=== PATIENT | female | born 1955 ===

== ENCOUNTER 2018-02-15 10:33 | Emergency (ER) | payer BC ==
--- NOTE | 2018-02-15 11:08 | C.PDOC ---
History Of Present Illness 62-year-old female with PMHx of gastritis and vertigo presents to the ED with complaints of epigastric burning, nausea, and dizziness that began today after drinking coffee. Patient states that 2-3 months ago she had an endoscopy diagnosing her gastritis, and had similar epigastric pain and nausea with prior episodes of gastritis. She had been on medication with temporary improvement, but did not take anything today due to the severe nausea. Patient then developed multiple episodes of vomiting, prompting her to come in for further evaluation. Admits she did not eat breakfast this morning. Otherwise patient denies any diarrhea, fever, chills, visual changes, weakness, numbness. Patient also reports having low back pain. No recent fall or injury. States she has multiple herniated discs, but is not taking any medications for this. Time Seen by Provider: 02/15/18 10:51 Chief Complaint (Nursing): Dizziness/Lightheaded History Per: Patient History/Exam Limitations: no limitations Onset/Duration Of Symptoms: Hrs Current Symptoms Are (Timing): Still Present Context: Food Quality Of Discomfort: Burning Associated Symptoms: Nausea, Vomiting Past Medical History Reviewed: Historical Data, Nursing Documentation, Vital Signs Vital Signs: Last Vital Signs Temp 97.7 F 02/15/18 13:55 Pulse 62 02/15/18 13:55 Resp 16 02/15/18 13:55 BP 103/64 02/15/18 13:55 Pulse Ox 99 02/15/18 13:55 - Medical History PMH: Back Problems (herniated discs), Gastritis Surgical History: Other Surgeries: Hysterectomy Family History: States: No Known Family Hx - Social History Hx Alcohol Use: No Hx Substance Use: No Review Of Systems Except As Marked, All Systems Reviewed And Found Negative. Constitutional: Negative for: Fever, Chills Eyes: Negative for: Vision Change Gastrointestinal: Positive for: Nausea, Vomiting, Abdominal Pain (epigastric). Negative for: Diarrhea Genitourinary: Negative for: Dysuria, Frequency, Incontinence Musculoskeletal: Positive for: Back Pain (chronic) Neurological: Positive for: Dizziness. Negative for: Weakness, Numbness, Change in Speech, Headache Physical Exam - Physical Exam Appears: Non-toxic, No Acute Distress Skin: Warm, Dry, No Rash Head: Atraumatic, Normacephalic Eye(s): bilateral: Normal Inspection Oral Mucosa: Moist Neck: Normal ROM Chest: Symmetrical, No Tenderness Cardiovascular: Rhythm Regular, No Murmur Respiratory: Normal Breath Sounds, No Rales, No Rhonchi, No Wheezing Gastrointestinal/Abdominal: Soft, Tenderness (mild tenderness to epigastrium), No Guarding, No Rebound Extremity: Bilateral: Atraumatic, Normal Color And Temperature, Normal ROM Pulses: Left Dorsalis Pedis: Normal, Right Dorsalis Pedis: Normal Neurological/Psych: Oriented x3, Normal Speech, Normal Cranial Nerves Gait: Steady ED Course And Treatment - Laboratory Results Result Diagrams: 02/15/18 11:11 02/15/18 11:11 ECG: Interpreted By Me, Viewed By Me ECG Rhythm: Sinus Bradycardia, R BBB (Incomplete) ECG Interpretation: No Acute Changes Rate From EC O2 Sat by Pulse Oximetry: 100 (room air) Pulse Ox Interpretation: Normal Medical Decision Making Medical Decision Making: Initial Impression: Dizziness, Vomiting, Epigastric pain Plan: * EKG * CMP * CBC * Lipase * Urinalysis * IV fluids * 10 mg Reglan IV * 20 mg Pepcid IV Progress/Updates: Labs reviewed and discussed with patient. copy of LAB report was provided. On re-evaluation, patient is resting comfortable and remains afebrile, tolerating po in the ED. She reports feeling better, no longer dizzy or nauseous. She has no fever or neuro deficits. Patient feels comfortable going home and will be discharged. Patient given follow up instructions. Instructed to return to ER if symptoms worsen or new symptoms arise. Disposition Counseled Patient/Family Regarding: Studies Performed, Diagnosis, Need For Followup, Rx Given - Disposition Referrals: [facility] [Outside] [facility] [Outside] [facility] [Outside] Disposition: HOME/ ROUTINE Disposition Time: 14:07 Condition: IMPROVED Additional Instructions: Matteo un seguimiento con kay mdico habitual para mayor cuidado y manejo jeanette medicamentos segn sea necesario para willy sntomas Prescriptions: Famotidine [Pepcid] 20 mg PO DAILY #20 tab RX: Meclizine [Meclizine*] 25 mg PO Q6 PRN #30 tab PRN Reason: Dizziness Ondansetron ODT [Zofran ODT] 1 odt PO BID PRN #6 odt PRN Reason: Nausea/Vomiting Instructions: Gastritis (DC), Vertigo (a Type of Dizziness) Print Language: TAMAZIGHT - POA Present On Arrival: None - Clinical Impression Clinical Impression: Gastritis, Vertigo, Vomiting - PA / RU[employer] W[employer]ER / Resident Statement MD/DO has reviewed & agrees with the documentation as recorded. - Scribe Statement The provider has reviewed the documentation as recorded by the Scribe (Maite Trujillo) All medical record entries made by the Scribe were at my direction and personally dictated by me. I have reviewed the chart and agree that the record accurately reflects my personal performance of the history, physical exam, medical decision making, and the department course for this patient. I have also personally directed, reviewed, and agree with the discharge instructions and disposition.
[2018-02-15] MEDS ORDERED: Sodium Chloride 0.9% 1,000 ML ONE (11:14)
[2018-02-15 11:20] LABS: BASO % 0.6 % (0.0-2.0); EOS % 0.4 % (0.0-4.0); HEMOGLOBIN 12.3 g/dL (11.0-16.0); LYMPH # 1.6 K/uL (1.0-4.3); LYMPH % 21.5 % (20.0-40.0); MEAN CORPUSCULAR HEMOGLOBIN 32.2 pg (27.0-31.0); MEAN CORPUSCULAR HGB CONC 34.2 g/dL (33.0-37.0); MEAN PLATELET VOLUME 8.7 fL (7.2-11.7); MONO # 0.3 K/uL (0.0-0.8); MONO % 4.5 % (0.0-10.0); NEUT # 5.3 K/uL (1.8-7.0); RBC 3.83 Mil/uL (3.80-5.20); RED CELL DISTRIBUTION WIDTH 13.8 % (11.5-14.5); WHITE BLOOD COUNT 7.2 K/uL (4.8-10.8)
[2018-02-15 11:27] LABS: ALB/GLOB RATIO 1.5 (1.0-2.1); ALBUMIN 3.9 g/dL (3.5-5.0); ALT/SGPT 26 U/L (9-52); AST/SGOT 22 U/L (14-36); BLOOD UREA NITROGEN 12 mg/dL (7-17); CALCIUM 9.1 mg/dl (8.6-10.4); GFR AFRICAN-AMERICAN > 60; GFR NON-AFRICAN AMERICAN > 60; LIPASE 95 U/L (23-300)
[2018-02-15] MEDS: Sodium Chloride 0.9% 1,000 ML IV ONE (11:27)
[2018-02-15 13:49] LABS: SQUAMOUS EPITHIAL < 1 /hpf (0-5); URINE BILIRUBIN NEGATIVE (NEGATIVE); URINE BLOOD NEGATIVE (NEGATIVE); URINE CLARITY Clear (Clear); URINE COLOR Yellow (YELLOW); URINE GLUCOSE (UA) NORMAL (Normal); URINE LEUKOCYTE ESTERASE NEG Leu/uL (Negative); URINE PROTEIN NEGATIVE (NEGATIVE); URINE UROBILINOGEN NORMAL mg/dL (0.2-1.0)
[2018-02-15 13:56] VITALS: BP 103/64; PULSE 62; RESP 16; TEMP 97.7
[2018-02-15 14:07] VITALS: O2SAT 100
--- NOTE | 2018-02-16 14:24 | CARD ---
APPROVED REPORT Date of service: 02/15/2018 EKG Measurement Heart [id number] <Conclusion> Sinus bradycardia Incomplete right bundle branch block Borderline ECG
== END 2018-02-15 15:11 | disposition home or self-care (01) ==
LOC: C.ER 10:33
DX: K29.70 Gastritis, unspecified, without bleeding (principal); R42 Dizziness and giddiness; R11.10 Vomiting, unspecified
CPT/HCPCS: 80053; 81001; 82948; 83690; 85025; 93005; 96361; 96374; 96375; 99285; J2765; J7030